=== PATIENT | male | born 1945 | race Caucasian/White ===

== ENCOUNTER 2019-09-29 20:43 | Inpatient (IN) | payer MEDICARE ==
[~2019-09-29] VITALS: Ht 180.3 cm; Wt 100.0 kg
[2019-09-29 21:49] LABS: MEAN CORPUSCULAR HEMOGLOBIN 31.4 pg (27.5-34.5); MEAN CORPUSCULAR HGB CONC 33.6 g/dL (33.2-36.2); MEAN CORPUSCULAR VOLUME 93.4 fL (81-97); MEAN PLATELET VOLUME 8.1 fL (7.4-10.4); PLATELET COUNT 280 x10^3/uL (130-400); RED BLOOD COUNT 5.54 x10^6/uL (4.38-5.82); RED CELL DISTRIBUTION WIDTH 13.4 % (9.4-14.8)
[2019-09-29 22:01] LABS: ALANINE AMINOTRANSFERASE 26 U/L (12-78); ALBUMIN 3.9 g/dL (3.4-5.0); ANION GAP 9 mmol/L (5-15); CALCIUM 9.6 mg/dL (8.5-10.1); CHLORIDE 108 mmol/L (98-107); CREATININE 1.25 mg/dL (0.7-1.3)
[2019-09-29 22:06] LABS: ALKALINE PHOSPHATASE 47 U/L (45-117); BILIRUBIN,TOTAL 0.3 mg/dL (0.2-1.0); TOTAL PROTEIN 8.5 g/dL (6.4-8.2); TROPONIN I < 0.015 ng/mL (0.000-0.045)
[2019-09-29 22:10] LABS: BASOPHILS # (AUTO) 0.02 x10^3/uL (0-0.1); BASOPHILS % (AUTO) 0 % (0-1); EOSINOPHILS # (AUTO) 0.03 x10^3/uL (0-0.4); EOSINOPHILS % (AUTO) 0 % (1-7); LYMPHOCYTES % (AUTO) 7 % (22-44); MD SCAN; MONOCYTES # (AUTO) 0.64 x10^3/uL (0.2-0.8); MONOCYTES % (AUTO) 4 % (2-9); NEUTROPHILS # (AUTO) 16.57 x10^3/uL (1.8-6.8); NEUTROPHILS % (AUTO) 90 % (42-75)
[2019-09-29] MEDS ORDERED: ONDANSETRON 2MG/ML, 2ML IVPush ONE (22:30)
[2019-09-29] MEDS ORDERED: KETOROLAC 30 MG/1 ML IVPush ONE (22:30)
--- NOTE | 2019-09-29 23:00 | NUR ---
PT STATED HE DOES NOT NEED TO GO TO THE BATHROOM FOR URINE SAMPLE
[2019-09-29] MEDS ORDERED: ONDANSETRON 2MG/ML, 2ML ONE (23:06)
[2019-09-29] MEDS ORDERED: KETOROLAC 30 MG/1 ML ONE (23:06)
[2019-09-29] MEDS ORDERED: OMNIPAQUE 350 MG/ML, 100ML BOTTLE ONE (23:39)
--- NOTE | 2019-09-30 | NUR ---
PT RESTING IN BED WITH PT DAUGHTER AT PT SIDE, PT DENIED ANY WANTS OR NEEDS AT THIS TIME. HOSPITAL INSURANCE REPRESENTATIVE WILL CONTINUE TO MONITOR PT VSS
[2019-09-30] MEDS ORDERED: ASPI-496 PO (00:34)
[2019-09-30] MEDS ORDERED: MORPHINE SULFATE 4 MG/ML, 1ML IVPush PRN (01:00)
[2019-09-30] MEDS ORDERED: ONDANSETRON 2MG/ML, 2ML IVPush PRN ×3 (01:00→10:00)
[2019-09-30] MEDS ORDERED: PLEASE ENTER HEIGHT AND WEIGHT MC SCH (01:00)
--- NOTE | 2019-09-30 01:40 | NUR ---
REPORT GIVEN TO GASTON CUEVAS
[2019-09-30 02:30] VITALS: BP 160/90
[2019-09-30] MEDS ORDERED: morphine SULFATE 10 MG/ML, 1ML IVPush PRN (03:00)
[2019-09-30] MEDS ORDERED: PROMETHAZINE 25 MG/ML, 1ML IM PRN (03:00)
[2019-09-30] MEDS ORDERED: NITROGLYCERIN 0.4 MG/SPRAY SL PRN (03:00)
[2019-09-30] MEDS ORDERED: THIAMINE 200 MG in SODIUM CHLORIDE 0.9% 50 ML IV ONE (03:00)
[2019-09-30] MEDS ORDERED: NITROGLYCERIN 0.4 MG BOTTLE (25 TABS) SL PRN ×2 (03:00)
[2019-09-30] MEDS ORDERED: GABAPENTIN 300 MG CAPSULE PO PRN (03:00)
[2019-09-30] MEDS ORDERED: hydrALAzine 20 MG/ML, 1ML IVPush PRN (03:00)
[2019-09-30] MEDS ORDERED: MAALOX/HYOSCYAMINE/LIDOCAINE 45 ML BTL PO ONE (03:00)
[2019-09-30] MEDS ORDERED: ACETAMINOPHEN 325 MG TABLET PO PRN ×2 (03:00→08:30)
[2019-09-30 03:22] LABS: CHOLESTEROL, TOTAL 218 mg/dL (140-239); TRIGLYCERIDES 187 mg/dL (50-200); VLDL CHOLESTEROL 37 mg/dL (0-25)
[2019-09-30 03:25] LABS: HDL CHOL % 20 % (26-37); HDL CHOLESTEROL (DIRECT) 44 mg/dL (40-60); LDL CHOLESTEROL,CALCULATED 137 mg/dL (54-169); LDL/HDL RATIO 3.1 (0.5-3.0); TROPONIN I < 0.015 ng/mL (0.000-0.045)
[2019-09-30 03:27] LABS: INTERNATIONAL NORMALIZED RATIO 0.97 (0.93-1.1)
[2019-09-30] MEDS: LACTATED RINGERS 1,000 ML IV SCH ×2 (03:38→18:30)
[2019-09-30 06:56] VITALS: BP 134/87
[2019-09-30 08:40] LABS: MICROSCOPIC INDICATED
[2019-09-30] MEDS ORDERED: BUPIVACAINE/PF-EPI 0.5% 1:200K ONE (08:47)
[2019-09-30] MEDS ORDERED: CHLORHEXIDINE 15 ML UDC ONE (08:57)
[2019-09-30] MEDS ORDERED: CHLORHEXIDINE 15 ML UDC MM ONE (09:00)
[2019-09-30] MEDS ORDERED: PROPOFOL 50 ML ONE (09:11)
[2019-09-30] MEDS ORDERED: FENTANYL PF 250 MCG/5ML ONE (09:11)
[2019-09-30] MEDS ORDERED: CEFAZOLIN PMX 2GM/50ML IVPB ONE (09:18)
[2019-09-30] MEDS ORDERED: ONDANSETRON 2MG/ML, 2ML ONE (09:18)
[2019-09-30] MEDS ORDERED: ROCURONIUM 10 MG/ML,10ML ONE (09:18)
[2019-09-30] MEDS ORDERED: SUCCINYLCHOLINE 20 MG/ML, 10ML ONE (09:18)
[2019-09-30 09:30] LABS: MEAN CORPUSCULAR HEMOGLOBIN 31.3 pg (27.5-34.5); MEAN CORPUSCULAR HGB CONC 32.9 g/dL (33.2-36.2); MEAN CORPUSCULAR VOLUME 95.1 fL (81-97); MEAN PLATELET VOLUME 8.5 fL (7.4-10.4); PLATELET COUNT 277 x10^3/uL (130-400); RED BLOOD COUNT 5.53 x10^6/uL (4.38-5.82); RED CELL DISTRIBUTION WIDTH 13.1 % (9.4-14.8)
[2019-09-30] MEDS ORDERED: OXYcodone 5 MG/5 ML ORAL.SOL UDC PO PRN (10:00)
[2019-09-30] MEDS ORDERED: LABETALOL 5MG/ML, 20ML IV PRN (10:00)
[2019-09-30] MEDS ORDERED: DIAZEPAM 5 MG/ML, 2ML IVPush PRN (10:00)
[2019-09-30] MEDS ORDERED: DIPHENHYDRAMINE 50 MG/ML, 1ML IVPush PRN (10:00)
[2019-09-30] MEDS ORDERED: HYDROmorphone 1 MG/ML, 1ML INJ IVPush PRN (10:00)
[2019-09-30] MEDS ORDERED: FENTANYL PF 100 MCG/2ML IV PRN (10:00)
[2019-09-30] MEDS ORDERED: MEPERIDINE/PF 25MG/0.5ML IVPush PRN (10:00)
[2019-09-30] MEDS ORDERED: EPHEDRINE 50 MG/ML, 1ML IVPush PRN (10:00)
[2019-09-30] MEDS ORDERED: PROMETHAZINE 25 MG/ML, 1ML IVPush PRN (10:00)
[2019-09-30] MEDS ORDERED: METOCLOPRAMIDE 5 MG/ML, 2ML IVPush PRN (10:00)
[2019-09-30 10:10] LABS: BASOPHILS # (AUTO) 0.01 x10^3/uL (0-0.1); BASOPHILS % (AUTO) 0 % (0-1); EOSINOPHILS # (AUTO) 0.02 x10^3/uL (0-0.4); EOSINOPHILS % (AUTO) 0 % (1-7); LYMPHOCYTES # (AUTO) 0.57 x10^3/uL (1-3.4); LYMPHOCYTES % (AUTO) 3 % (22-44); MD SCAN; MONOCYTES % (AUTO) 3 % (2-9); NEUTROPHILS # (AUTO) 17.56 x10^3/uL (1.8-6.8); NEUTROPHILS % (AUTO) 94 % (42-75)
[2019-09-30 12:16] VITALS: BP 128/72
[2019-09-30] MEDS: HEPARIN 5,000 UNITS/ML, 1ML SQ SCH ×2 (12:26→20:24)
[2019-09-30 13:35] LABS: TROPONIN I < 0.015 ng/mL (0.000-0.045)
[2019-09-30 18:37] VITALS: BP 124/75
[2019-09-30] MEDS: ATORVASTATIN 40 MG TABLET PO SCH (20:21)
[2019-09-30] MEDS: ASPIRIN 81 MG TABLET EC PO SCH (20:21)
[2019-10-01 00:26] VITALS: BP 125/70
[2019-10-01 04:52] LABS: BASOPHILS # (AUTO) 0.03 x10^3/uL (0-0.1); BASOPHILS % (AUTO) 0 % (0-1); EOSINOPHILS # (AUTO) 0.11 x10^3/uL (0-0.4); EOSINOPHILS % (AUTO) 1 % (1-7); LYMPHOCYTES # (AUTO) 1.61 x10^3/uL (1-3.4); LYMPHOCYTES % (AUTO) 16 % (22-44); MD NO; MEAN CORPUSCULAR HEMOGLOBIN 31.5 pg (27.5-34.5); MEAN CORPUSCULAR HGB CONC 33.6 g/dL (33.2-36.2); MEAN CORPUSCULAR VOLUME 93.6 fL (81-97); MEAN PLATELET VOLUME 8.4 fL (7.4-10.4); MONOCYTES # (AUTO) 0.63 x10^3/uL (0.2-0.8); MONOCYTES % (AUTO) 6 % (2-9); NEUTROPHILS % (AUTO) 76 % (42-75); PLATELET COUNT 210 x10^3/uL (130-400); RED BLOOD COUNT 4.45 x10^6/uL (4.38-5.82); RED CELL DISTRIBUTION WIDTH 13.3 % (9.4-14.8)
[2019-10-01 05:01] LABS: ANION GAP 4 mmol/L (5-15); CALCIUM 7.8 mg/dL (8.5-10.1); CHLORIDE 108 mmol/L (98-107); CREATININE 1.15 mg/dL (0.7-1.3)
[2019-10-01] MEDS: HEPARIN 5,000 UNITS/ML, 1ML SQ SCH ×3 (05:40→20:42)
[2019-10-01 07:07] VITALS: BP 124/77
[2019-10-01] MEDS ORDERED: morphine SULFATE 10 MG/ML, 1ML IVPush PRN (09:00)
[2019-10-01] MEDS: ASPIRIN 81 MG TABLET EC PO SCH (09:00)
[2019-10-01 12:09] VITALS: BP 119/79
[2019-10-01] MEDS ORDERED: NICOTINE 21 MG/24 HR PATCH.TD24 TD ONE (13:00)
[2019-10-01] MEDS ORDERED: HYDROcodone/APAP 5/325 TABLET PO PRN (14:30)
[2019-10-01 19:37] VITALS: BP 134/73
[2019-10-01] MEDS: ATORVASTATIN 40 MG TABLET PO SCH (20:42)
[2019-10-02 01:32] VITALS: BP 113/62
[2019-10-02 04:09] LABS: BASOPHILS # (AUTO) 0.05 x10^3/uL (0-0.1); BASOPHILS % (AUTO) 1 % (0-1); EOSINOPHILS # (AUTO) 0.17 x10^3/uL (0-0.4); EOSINOPHILS % (AUTO) 2 % (1-7); LYMPHOCYTES # (AUTO) 1.94 x10^3/uL (1-3.4); LYMPHOCYTES % (AUTO) 20 % (22-44); MD NO; MEAN CORPUSCULAR HEMOGLOBIN 31.5 pg (27.5-34.5); MEAN CORPUSCULAR HGB CONC 33.4 g/dL (33.2-36.2); MEAN CORPUSCULAR VOLUME 94.2 fL (81-97); MEAN PLATELET VOLUME 8.3 fL (7.4-10.4); MONOCYTES # (AUTO) 0.66 x10^3/uL (0.2-0.8); MONOCYTES % (AUTO) 7 % (2-9); NEUTROPHILS % (AUTO) 72 % (42-75); PLATELET COUNT 195 x10^3/uL (130-400); RED CELL DISTRIBUTION WIDTH 13.2 % (9.4-14.8)
[2019-10-02] MEDS: HEPARIN 5,000 UNITS/ML, 1ML SQ SCH ×2 (05:53→13:00)
[2019-10-02] MEDS: ASPIRIN 81 MG TABLET EC PO SCH (08:11)
[2019-10-02 08:51] VITALS: BP 126/75
[2019-10-02] MEDS ORDERED: ACET325T26 PO (10:29)
[2019-10-02] MEDS ORDERED: ATOR40TA78 PO (10:29)
[2019-10-02] MEDS ORDERED: HYDR-3240 PO (12:39)
[2019-10-02] MEDS ORDERED: ONDA4TAB13 PO (12:40)
== END 2019-10-02 13:06 | disposition home or self-care (01) | DRG 351 ==
LOC: ED 09-30 01:00 → 4WST 09-30 02:03 → DCLOUNGE 10-02 12:44
PROVIDERS: ADMIT Family Medicine; ATTEND Internal Medicine
PROC: 0YU50JZ Supplement Right Inguinal Region with Synthetic Substitute, Open Approach (ICD-10-PCS; principal; 2019-09-30 10:30)
DX: K40.31 Unilateral inguinal hernia, with obstruction, without gangrene, recurrent (principal); K56.7 Ileus, unspecified; E66.9 Obesity, unspecified; E78.5 Hyperlipidemia, unspecified; F10.10 Alcohol abuse, uncomplicated; G47.00 Insomnia, unspecified; J44.9 Chronic obstructive pulmonary disease, unspecified; I50.9 Heart failure, unspecified; I11.0 Hypertensive heart disease with heart failure; E83.51 Hypocalcemia; I25.10 Atherosclerotic heart disease of native coronary artery without angina pectoris; K21.9 Gastro-esophageal reflux disease without esophagitis; F17.210 Nicotine dependence, cigarettes, uncomplicated; R53.81 Other malaise; Z20.828 Contact with and (suspected) exposure to other viral communicable diseases; Z90.49 Acquired absence of other specified parts of digestive tract; Z91.14 Patient's other noncompliance with medication regimen; Z68.30 Body mass index [BMI] 30.0-30.9, adult; Z88.0 Allergy status to penicillin; Z79.82 Long term (current) use of aspirin
CPT/HCPCS: 36415; 71045; 74177; 76700; 80048; 80053; 80061; 80307; 81001; 82330; 83605; 83690; 84484; 85025; 85610; 87635; 93005; 93306; 96374; 96375; 99285; G0378; J0690; J1644; J1885; J2405; J2704; J3010; J3411; Q9967; C1781; J0330; J2270; J7120